=== PATIENT | female | born 1995 | race Caucasian/White ===

== ENCOUNTER 2017-07-22 20:44 | Emergency (ER) | payer SELFPAY ==
[~2017-07-22] VITALS: Ht 152.4 cm; Wt 63.5 kg
[~2017-07-22 20:44] MED LIST: ACET-2043 PO; DOCU-416 PO; FERR-41 PO; IBUP600T22 PO; IBUP800T37 PO; OXYC-865 PO; PREN-75 PO
[2017-07-22 20:49] VITALS: BP 120/78
--- NOTE | 2017-07-22 20:52 | ER Report ---
History and Physical Time Seen By MD: 20:52 HPI/ROS CHIEF COMPLAINT: Lump on right cheek; pain to scar HISTORY OF PRESENT ILLNESS: Patient is a 22-year-old female who presents to the emergency department with 2 separate problems. 1st issues that she has had a lesion to her right cheek since she's been approximately 8 years old. Occasionally will drain foul-smelling green discharge he will somewhat resolve and then recur. She is also complaining of pain to her CT scan correction scar. Patient had a section in February 2017. She's also noted increased vaginal bleeding. She denies dysparenia or other vaginal discahrgeShe [facility] REVIEW OF SYSTEMS: Face: Lump to right cheek Respiratory: No cough, no dyspnea. Cardiovascular: No chest pain, no palpitations. Gastrointestinal: No vomiting, pain to scar Musculoskeletal: No back pain. Allergies: Coded Allergies: No Known Drug Allergies (Unverified , 07/22/17) Home Meds Active Scripts Tramadol Hcl (TRAMADOL HCL) 50 Mg Tablet, 50 MG PO Q6H Y for PAIN, #12 TAB 0 Refills Prov:MICHAEL RAHMAN MD 07/22/17 Cephalexin Monohydrate (CEPHALEXIN) 500 Mg Cap, 500 MG PO Q6H, #20 CAP 0 Refills Prov:MICHAEL RAHMAN MD 07/22/17 Discontinued Reported Medications Vit#96/Ferrous Fum/Fa ( TABLET) 1 Each Tablet, 1 TAB PO DAILY, #90 TAB 1 Refill 12/03/16 Discontinued Scripts Tramadol Hcl (TRAMADOL HCL) 50 Mg Tablet, 50 MG PO Q6H Y for PAIN, #12 TAB 0 Refills Prov:MICHAEL RAHMAN MD 07/22/17 Cephalexin Monohydrate (CEPHALEXIN) 500 Mg Cap, 500 MG PO Q6H, #20 CAP 0 Refills Prov:MICHAEL RAHMAN MD 07/22/17 Docusate Sodium (COLACE) 100 Mg Capsule, 100 MG PO BID, #60 CAPSULE 1 Refill Prov:HERMELINDA GLEZ MD 02/27/17 Oxycodone Hcl/Acetaminophen (PERCOCET 5-325 MG TABLET) 1 Each Tablet, 1-2 TAB PO Q4H Y for PAIN, #40 TAB 0 Refills Prov:HERMELINDA GLEZ MD 02/27/17 Ibuprofen (IBUPROFEN) 800 Mg Tablet, 1 TAB PO Q8H Y for PAIN, #30 TAB 0 Refills TAKE WITH FOOD EVERY 8 HOURS Prov:HERMELINDA GLEZ MD 02/27/17 Ferrous Sulfate (FERROUS SULFATE) 325 Mg Tablet., 1 TAB PO BID, #60 TAB 1 Refill Prov:HERMELINDA GLEZ MD 02/27/17 Past Medical/Surgical History History of in February 2017 Hx Smoking: Yes Smoking Status: Former Smoker Exposure to Second Hand Smoke?: Yes Constitutional Vital Sign - Last 24 Hours 07/22/17 20:49 Temp 97.7 Pulse 81 Resp 14 B/P (MAP) 120/78 Pulse Ox 95 O2 Delivery Room Air Physical Exam General Appearance: The patient is alert, has no immediate need for airway protection and no current signs of toxicity. Respiratory: Chest is non tender, lungs are clear to auscultation. Cardiac: regular rate and rhythm Gastrointestinal: Abdomen soft, mild tenderness alonfg right side of scar; no masses Musculoskeletal: Neck: Neck is supple and non tender. Extremities have full range of motion and are non tender. Skin: No rashes or lesions. Patient has cystlike lesion to the right side of her cheek that we'll drain green fluid when expressed Medical Decision Making Data Points Laboratory Hematology Test 07/22/17 21:00 07/22/17 21:14 Urine HCG, Qualitative Negative (NEGATIVE) Urine Color Yellow Urine Clarity Slightly-cloudy Urine pH 6.0 pH (4.8-9.5) Urine Specific [place] 1.021 Urine Protein Negative mg/dL (NEGATIVE) Urine Glucose (UA) Negative mg/dL (NEGATIVE) Urine Ketones Negative mg/dL (NEGATIVE) Urine Blood Large (NEGATIVE) Urine Nitrite Negative (NEGATIVE) Urine Bilirubin Negative (NEGATIVE) Urine Urobilinogen Negative mg/dL (0.2-1.9) Urine Leukocyte Esterase Small (NEGATIVE) Urine RBC 13 /HPF (0-2/HPF) Urine WBC 15 /HPF (0-5/HPF) Urine Squamous Epithelial Cells Many /LPF (</=FEW) Urine Bacteria Negative /HPF (NONE-FEW) Urine Hyaline Casts Few /LPF (NONE-FEW) Urine Mucus Few /HPF (NONE-FEW) Chemistry Test 07/22/17 21:00 07/22/17 21:14 Urine HCG, Qualitative Negative (NEGATIVE) Urine Color Yellow Urine Clarity Slightly-cloudy Urine pH 6.0 pH (4.8-9.5) Urine Specific [place] 1.021 Urine Protein Negative mg/dL (NEGATIVE) Urine Glucose (UA) Negative mg/dL (NEGATIVE) Urine Ketones Negative mg/dL (NEGATIVE) Urine Blood Large (NEGATIVE) Urine Nitrite Negative (NEGATIVE) Urine Bilirubin Negative (NEGATIVE) Urine Urobilinogen Negative mg/dL (0.2-1.9) Urine Leukocyte Esterase Small (NEGATIVE) Urine RBC 13 /HPF (0-2/HPF) Urine WBC 15 /HPF (0-5/HPF) Urine Squamous Epithelial Cells Many /LPF (</=FEW) Urine Bacteria Negative /HPF (NONE-FEW) Urine Hyaline Casts Few /LPF (NONE-FEW) Urine Mucus Few /HPF (NONE-FEW) Urinalysis Test 07/22/17 21:00 07/22/17 21:14 Urine HCG, Qualitative Negative (NEGATIVE) Urine Color Yellow Urine Clarity Slightly-cloudy Urine pH 6.0 pH (4.8-9.5) Urine Specific [place] 1.021 Urine Protein Negative mg/dL (NEGATIVE) Urine Glucose (UA) Negative mg/dL (NEGATIVE) Urine Ketones Negative mg/dL (NEGATIVE) Urine Blood Large (NEGATIVE) Urine Nitrite Negative (NEGATIVE) Urine Bilirubin Negative (NEGATIVE) Urine Urobilinogen Negative mg/dL (0.2-1.9) Urine Leukocyte Esterase Small (NEGATIVE) Urine RBC 13 /HPF (0-2/HPF) Urine WBC 15 /HPF (0-5/HPF) Urine Squamous Epithelial Cells Many /LPF (</=FEW) Urine Bacteria Negative /HPF (NONE-FEW) Urine Hyaline Casts Few /LPF (NONE-FEW) Urine Mucus Few /HPF (NONE-FEW) ED Course/Re-evaluation ED Course 07/22/2017 9:11:33 pm Patient with suspected epidermal inclusion cyst to the right face. Plan will be referral to general surgery for follow-up and possible excision of cyst. In terms of the patient's abdominal discomfort to her scar no identifiable cause was found. I we will obtain a urinalysis for culture sensitivity GC chlamydia and test. If these are negative will refer back to her [facility] for further evaluation. Decision to Disposition Date: Jul 22, 2017 Decision to Disposition Time: 21:58 Depart Departure Latest Vital Signs Vital Signs Date Time Temp Pulse Resp B/P (MAP) Pulse Ox O2 Delivery O2 Flow Rate FiO2 07/22/17 20:49 97.7 81 14 120/78 95 Room Air Impression: Primary Impression: Epidermal cyst of face Additional Impression: Suprapubic abdominal pain Condition: Improved Disposition: HOME OR SELF-CARE Referrals: HERMELINDA GLEZ MD (PCP) 1 Week FADUMO PARRA MD For evaluation and possible removal of epidermal inclusion cyst New Scripts Tramadol Hcl (TRAMADOL HCL) 50 Mg Tablet 50 MG PO Q6H Y for PAIN, #12 TAB 0 Refills Prov: MICHAEL RAHMAN MD 07/22/17 Cephalexin Monohydrate (CEPHALEXIN) 500 Mg Cap 500 MG PO Q6H, #20 CAP 0 Refills Prov: MICHAEL RAHMAN MD 07/22/17 Patient Instructions: Abdominal Pain (ED), Epidermal Inclusion Cysts (ED) Problem Qualifiers MICHAEL RAHMAN MD Jul 22, 2017 20:52
[2017-07-22] MEDS ORDERED: traMADol 50 MG TAB PO ONE (21:10)
[2017-07-22] MEDS ORDERED: CEPHALEXIN 500 MG CAP TH 2 CAP/BOTTLE PO ONE (21:10)
[2017-07-22] MEDS ORDERED: CEPH500C24 PO ×2 (22:00→22:27)
[2017-07-22] MEDS ORDERED: TRAM-420 PO ×2 (22:00→22:27)
== END 2017-07-22 22:25 | disposition home or self-care (01) ==
LOC: ER 20:58
DX: L72.0 Epidermal cyst (principal); R10.30 Lower abdominal pain, unspecified; Z87.891 Personal history of nicotine dependence
CPT/HCPCS: 81001; 81025; 87088; 87491; 87591; 99283

== ENCOUNTER 2018-07-30 12:39 | Emergency (ER) | payer BC ==
[~2018-07-30 12:39] MED LIST changes: +CEPH500C24 PO; -PREN-75 PO; +PREN1TAB29 PO; +TRAM-420 PO
--- NOTE | 2018-07-30 12:49 | ER Report ---
History and Physical Time Seen By MD: 12:49 Hx. of Stated Complaint: PT REPORTS NAUSEA AND ABD CRAMPING STARTED THIS MORNING, DENIES VOMITING/DIARRHEA, PT REPORTS "SMELLY GAS" HPI/ROS CHIEF COMPLAINT: Nausea, foul-smelling odor from the vagina, bad body odor. HISTORY OF PRESENT ILLNESS: 23-year-old female patient presents to emergency room with complaint of nausea, foul-smelling odor from the vagina and bad body odor. Patient states that body odors been going on for years. She states that she has tried all sorts of different under did rinse with no improvement. She states that she has noted for the past year that she has a foul-smelling odor from her vagina. Patient states that she does have some discomfort with intercourse. She states that she's noticed a foul-smelling odor. She states she's also noticed a discharge. She denies having any nausea, vomiting or diarrhea. She denies having any fevers. Patient states that she was nauseated when she initially woke up this morning, however she states she feels better at this point in time. Patient has not taken any medication for this. REVIEW OF SYSTEMS: Respiratory: No cough, no dyspnea. Cardiovascular: No chest pain, no palpitations. Gastrointestinal: As noted above Musculoskeletal: No back pain. Allergies: Coded Allergies: No Known Drug Allergies (Unverified , 07/30/18) Home Meds Active Scripts Metronidazole (FLAGYL) 500 Mg Tablet, 500 MG PO TID, #42 TAB Prov:GRISEL MASON [facility] 07/30/18 Doxycycline Hyclate (DOXYCYCLINE HYCLATE) 100 Mg Tablet, 100 MG PO BID, #28 TAB Prov:GRISEL MASON [facility] 07/30/18 Discontinued Scripts Tramadol Hcl (TRAMADOL HCL) 50 Mg Tablet, 50 MG PO Q6H PRN for PAIN, #12 TAB 0 Refills Prov:MICHAEL RAHMAN MD 07/22/17 Cephalexin Monohydrate (CEPHALEXIN) 500 Mg Cap, 500 MG PO Q6H, #20 CAP 0 Refills Prov:MICHAEL RAHMAN MD 07/22/17 Past Medical/Surgical History Patient has a past medical history of migraines, dermal cyst, anxiety. Patient has surgical history of section. Reviewed Nurses Notes: Yes Hx Smoking: Yes Smoking Status: Former Smoker Exposure to Second Hand Smoke?: Yes Hx Substance Use Disorder: No Hx Alcohol Use: No Constitutional Vital Sign - Last 24 Hours 07/30/18 07/30/18 07/30/18 07/30/18 12:45 12:46 13:00 13:01 Temp 97.6 Pulse 80 88 Resp 16 B/P (MAP) 118/76 118/76 (90) 90/70 (77) Pulse Ox 93 94 O2 Delivery Room Air 07/30/18 07/30/18 07/30/18 07/30/18 13:30 13:45 14:00 14:30 Pulse 80 77 80 70 B/P (MAP) 104/76 (85) 106/78 (87) 93/62 (72) Pulse Ox 95 95 94 94 07/30/18 07/30/18 07/30/18 07/30/18 14:45 15:00 15:15 15:30 Pulse 68 62 54 73 B/P (MAP) 91/65 (74) 96/68 (77) Pulse Ox 93 94 91 94 Physical Exam General Appearance: The patient is alert, has no immediate need for airway protection and no current signs of toxicity. Respiratory: Chest is non tender, lungs are clear to auscultation. Cardiac: regular rate and rhythm Gastrointestinal: Abdomen is soft and non tender, no masses, bowel sounds normal. Musculoskeletal: Neck: Neck is supple and non tender. Extremities have full range of motion and are non tender. Skin: No rashes or lesions. DIFFERENTIAL DIAGNOSIS: After history and physical exam differential diagnosis was considered for sexually transmitted infection, pelvic inflammatory disease, bacterial vaginosis, tubo-ovarian abscess. Medical Decision Making Data Points Result Diagram: 07/30/18 1254 07/30/18 1254 Laboratory Hematology Test 07/30/18 12:54 07/30/18 13:30 Red Blood Count 5.21 M/uL (4.17-5.56) Mean Corpuscular Volume 88.6 fL (80.0-96.0) Mean Corpuscular Hemoglobin 30.3 pg (26.0-33.0) Mean Corpuscular Hemoglobin Concent 34.2 g/dL (32.0-36.0) Red Cell Distribution Width 12.6 % (11.5-14.5) Mean Platelet Volume 7.6 fL (7.2-11.1) Neutrophils (%) (Auto) 64.4 % (39.4-72.5) Lymphocytes (%) (Auto) 26.8 % (17.6-49.6) Monocytes (%) (Auto) 5.4 % (4.1-12.4) Eosinophils (%) (Auto) 2.8 % (0.4-6.7) Basophils (%) (Auto) 0.6 % (0.3-1.4) Nucleated RBC Relative Count (auto) 0.0 /100WBC Neutrophils # (Auto) 3.7 K/uL (2.0-7.4) Lymphocytes # (Auto) 1.5 K/uL (1.3-3.6) Monocytes # (Auto) 0.3 K/uL (0.3-1.0) Eosinophils # (Auto) 0.2 K/uL (0.0-0.5) Basophils # (Auto) 0.0 K/uL (0.0-0.1) Nucleated RBC Absolute Count (auto) 0.00 K/uL Urine Color Yellow Urine Clarity Clear Urine pH 7.0 pH (4.8-9.5) Urine Specific [place] 1.013 Urine Protein Negative mg/dL (NEGATIVE) Urine Glucose (UA) Negative mg/dL (NEGATIVE) Urine Ketones Negative mg/dL (NEGATIVE) Urine Blood Small (NEGATIVE) Urine Nitrite Negative (NEGATIVE) Urine Bilirubin Negative (NEGATIVE) Urine Urobilinogen Negative mg/dL (0.2-1.9) Urine Leukocyte Esterase Small (NEGATIVE) Urine RBC 1 /HPF (0-2/HPF) Urine WBC 1 /HPF (0-5/HPF) Urine Squamous Epithelial Cells Many /LPF (</=FEW) Urine Transitional Epithelial Cells Few /LPF (NONE-FEW) Urine Bacteria Few /HPF (NONE-FEW) Urine Mucus Few /HPF (NONE-FEW) Sodium Level 140 mmol/L (137-145) Potassium Level 3.7 mmol/L (3.5-5.0) Chloride Level 105 mmol/L (98-107) Carbon Dioxide Level 26 mmol/L (22-31) Blood Urea Nitrogen 10 mg/dl (7-18) Creatinine 0.70 mg/dl (0.52-1.04) Glomerular Filtration Rate Calc > 60.0 Random Glucose 88 mg/dl (75-110) Calcium Level 9.4 mg/dl (8.4-10.2) Total Bilirubin 0.4 mg/dl (0.2-1.3) Aspartate Amino Transf (AST/SGOT) 23 U/L (0-35) Alanine Aminotransferase (ALT/SGPT) 22 U/L (0-56) Alkaline Phosphatase 64 U/L (0-126) Total Protein 7.6 g/dl (6.3-8.2) Albumin 4.3 g/dl (3.5-5.0) Amylase Level 80 U/L (0-110) Lipase 58 U/L (23-300) Human Chorionic Gonadotropin, Qual Negative (NEGATIVE) Chemistry Test 07/30/18 12:54 07/30/18 13:30 White Blood Count 5.8 k/uL (4.5-11.0) Red Blood Count 5.21 M/uL (4.17-5.56) Hemoglobin 15.8 g/dL (12.0-16.0) Hematocrit 46.2 % (34.0-47.0) Mean Corpuscular Volume 88.6 fL (80.0-96.0) Mean Corpuscular Hemoglobin 30.3 pg (26.0-33.0) Mean Corpuscular Hemoglobin Concent 34.2 g/dL (32.0-36.0) Red Cell Distribution Width 12.6 % (11.5-14.5) Platelet Count 226 K/uL (150-450) Mean Platelet Volume 7.6 fL (7.2-11.1) Neutrophils (%) (Auto) 64.4 % (39.4-72.5) Lymphocytes (%) (Auto) 26.8 % (17.6-49.6) Monocytes (%) (Auto) 5.4 % (4.1-12.4) Eosinophils (%) (Auto) 2.8 % (0.4-6.7) Basophils (%) (Auto) 0.6 % (0.3-1.4) Nucleated RBC Relative Count (auto) 0.0 /100WBC Neutrophils # (Auto) 3.7 K/uL (2.0-7.4) Lymphocytes # (Auto) 1.5 K/uL (1.3-3.6) Monocytes # (Auto) 0.3 K/uL (0.3-1.0) Eosinophils # (Auto) 0.2 K/uL (0.0-0.5) Basophils # (Auto) 0.0 K/uL (0.0-0.1) Nucleated RBC Absolute Count (auto) 0.00 K/uL Urine Color Yellow Urine Clarity Clear Urine pH 7.0 pH (4.8-9.5) Urine Specific [place] 1.013 Urine Protein Negative mg/dL (NEGATIVE) Urine Glucose (UA) Negative mg/dL (NEGATIVE) Urine Ketones Negative mg/dL (NEGATIVE) Urine Blood Small (NEGATIVE) Urine Nitrite Negative (NEGATIVE) Urine Bilirubin Negative (NEGATIVE) Urine Urobilinogen Negative mg/dL (0.2-1.9) Urine Leukocyte Esterase Small (NEGATIVE) Urine RBC 1 /HPF (0-2/HPF) Urine WBC 1 /HPF (0-5/HPF) Urine Squamous Epithelial Cells Many /LPF (</=FEW) Urine Transitional Epithelial Cells Few /LPF (NONE-FEW) Urine Bacteria Few /HPF (NONE-FEW) Urine Mucus Few /HPF (NONE-FEW) Glomerular Filtration Rate Calc > 60.0 Calcium Level 9.4 mg/dl (8.4-10.2) Total Bilirubin 0.4 mg/dl (0.2-1.3) Aspartate Amino Transf (AST/SGOT) 23 U/L (0-35) Alanine Aminotransferase (ALT/SGPT) 22 U/L (0-56) Alkaline Phosphatase 64 U/L (0-126) Total Protein 7.6 g/dl (6.3-8.2) Albumin 4.3 g/dl (3.5-5.0) Amylase Level 80 U/L (0-110) Lipase 58 U/L (23-300) Human Chorionic Gonadotropin, Qual Negative (NEGATIVE) Urinalysis Test 07/30/18 12:54 Urine Color Yellow Urine Clarity Clear Urine pH 7.0 pH (4.8-9.5) Urine Specific [place] 1.013 Urine Protein Negative mg/dL (NEGATIVE) Urine Glucose (UA) Negative mg/dL (NEGATIVE) Urine Ketones Negative mg/dL (NEGATIVE) Urine Blood Small (NEGATIVE) Urine Nitrite Negative (NEGATIVE) Urine Bilirubin Negative (NEGATIVE) Urine Urobilinogen Negative mg/dL (0.2-1.9) Urine Leukocyte Esterase Small (NEGATIVE) Urine RBC 1 /HPF (0-2/HPF) Urine WBC 1 /HPF (0-5/HPF) Urine Squamous Epithelial Cells Many /LPF (</=FEW) Urine Transitional Epithelial Cells Few /LPF (NONE-FEW) Urine Bacteria Few /HPF (NONE-FEW) Urine Mucus Few /HPF (NONE-FEW) Microbiology Microbiology Date/Time Source Procedure Growth Status 07/30/18 13:30 Cervix Gram Stain - Final Resulted 07/30/18 13:30 Cervix Genital Culture Pending Resulted 07/30/18 13:30 Cervical Wet Prep - Final Complete EKG/Imaging Imaging Transvaginal pelvic ultrasound INDICATION: Pelvic pain during intercourse. COMPARISON: None Available FINDINGS: Uterus measures 7.2 x 4.8 x 4.2 cm. The uterus is retroverted and homogeneous. No focal abnormality. Nabothian cyst seen in the cervix. Double wall endometrial stripe measures 7.8 mm and homogeneous. There is a 2 mm cyst seen in the endometrium without other focal abnormality. There is no free fluid in the cul-de-sac. Urinary bladder is empty. Pelvic vessels appear unremarkable on this examination. Right ovary measures 4.1 x 3.0 x 2.0 cm and shows normal blood flow and contains multiple peripheral small follicles. Left ovary measures 3.0 x 3.8 x 2.5 cm and shows normal blood flow and contains multiple peripheral small follicles. No adnexal masses. IMPRESSION: 1. Uterus is retroverted and shows no focal normality. Endometrium is normal size with a 2 mm cyst present without other focal abnormality. 2. Both ovaries show multiple peripheral follicles/cysts. This nonspecific and could be an indication of polycystic ovarian syndrome. Correlate clinically. Report Dictated By: Miguelangel Stark at 07/30/2018 2:55 PM Report E-Signed By: Miguelangel Stark at 07/30/2018 2:58 PM ED Course/Re-evaluation ED Course Patient was admitted to an exam room, history and physical were obtained. Differential diagnoses were considered. On examination lungs are clear, heart is regular, abdomen is soft and nontender. With patient having complaints of vaginal discharge a pelvic exam was done as described below. Patient did have a tannish discharge. A CBC, CMP, urinalysis were obtained. Lab results were unremarkable. After reviewing her charts and saying that she did have a section approximately a year ago the decision was made to get an ultrasound of the pelvis make sure there is no clubbing and no abnormality. It was noted that she did have a 2 mm cyst in her uterus. Patient had a negative test. I discussed the findings with the patient. I believe that the patient does have an infection in the pelvis. We are going to treat her with azithromycin 1 g, Rocephin 250 mg, doxycycline 100 mg twice a day 14 days and Flagyl 500 mg 3 times a day 14 days. I have concerns about possible STI. We will go ahead and treat her partner as well with 2 g of azithromycin. A wet prep was done which showed moderate white blood cells, but no clue cells, no trichomoniasis. A vaginal culture was obtained and we will call her with results if any change antibiotics. A chlamydia and gonorrhea screen were also done and sent in. We will call her with results if they're positive in one week. Patient is follow-up with Dr. Wheeler. She verbalized understanding and agreement with plan. Pelvic exam: The vulva was normal no lesions. The vagina did not have significant discharge. The cervix was closed no bleeding, with thomas drainage. The uterus was normal size and tender. The adnexa had no masses and tenderness. The exam was performed with a flower cutter. Decision to Disposition Date: Jul 30, 2018 Decision to Disposition Time: 15:15 Depart Departure Latest Vital Signs Vital Signs Date Time Temp Pulse Resp B/P (MAP) Pulse Ox O2 Delivery O2 Flow Rate FiO2 07/30/18 15:30 73 96/68 (77) 94 07/30/18 12:45 97.6 16 Room Air Impression: Primary Impression: PID (pelvic inflammatory disease) Condition: Improved Disposition: HOME OR SELF-CARE New Scripts Metronidazole (FLAGYL) 500 Mg Tablet 500 MG PO TID, #42 TAB Prov: GRISEL MASON 07/30/18 Doxycycline Hyclate (DOXYCYCLINE HYCLATE) 100 Mg Tablet 100 MG PO BID, #28 TAB Prov: GRISEL MASON 07/30/18 Patient Instructions: Pelvic Inflammatory Disease (ED) Additional Instructions: Increase fluid intake. Take medications as prescribed. Follow up with Dr. Wheeler in the next week. Return to the ER if condition worsens. Limit activity by pain. No intercourse for the next 1 week. GRISEL MASON Jul 30, 2018 12:49
[2018-07-30] MEDS ORDERED: NS(*) 0.9% 1000 ML BAG 1,000 ML IV ONE (13:00)
[2018-07-30 13:19] LABS: PLATELET COUNT, AUTOMATED 226 K/uL (150-450)
--- NOTE | 2018-07-30 15:08 | RADIOLOGY IMAGING REPORT ---
FACILITY: [facility] PATIENT NAME: Delia Reese : 1995 MR: [id number] V: [id number] EXAM DATE: ORDERING PHYSICIAN: GRISEL MASON TECHNOLOGIST: Location: [facility] Patient: Delia Reese : 1995 Visit/Account:[id number] Date of Sevice: 07/30/2018 Transvaginal pelvic ultrasound INDICATION: Pelvic pain during intercourse. COMPARISON: None Available FINDINGS: Uterus measures 7.2 x 4.8 x 4.2 cm. The uterus is retroverted and homogeneous. No focal abnormality. Nabothian cyst seen in the cervix. Double wall endometrial stripe measures 7.8 mm and homogeneous. There is a 2 mm cyst seen in the endo metrium without other focal abnormality. There is no free fluid in the cul-de-sac. Urinary bladder is empty. Pelvic vessels appear unremarkable on this examination. Right ovary measures 4.1 x 3.0 x 2.0 cm and shows normal blood flow and contains multiple peripheral small follicles. Left ovary measures 3.0 x 3.8 x 2.5 cm and shows normal blood flow and contains multiple peripheral s mall follicles. No adnexal masses. IMPRESSION: 1. Uterus is retroverted and shows no focal normality. Endometrium is normal size with a 2 mm cyst pr esent without other focal abnormality. 2. Both ovaries show multiple peripheral follicles/cysts. This nonspecific and could be an indication of polycystic ovarian syndrome. Correlate clinically. Report Dictated By: Miguelangel Stark at 07/30/2018 2:55 PM Report E-Signed By: Miguelangel Stark at 07/30/2018 2:58 PM WSN:[id number]
[2018-07-30] MEDS ORDERED: DOXY-179 PO (15:14)
[2018-07-30] MEDS ORDERED: METR-1 PO (15:14)
[2018-07-30] MEDS ORDERED: cefTRIAXone 250 MG VIAL IM ONE (15:15)
[2018-07-30] MEDS ORDERED: AZITHROMYCIN 250 MG TAB PO ONE (15:15)
[2018-07-30 15:30] VITALS: BP 96/68
== END 2018-07-30 15:51 | disposition home or self-care (01) ==
LOC: ER 12:45
DX: N73.9 Female pelvic inflammatory disease, unspecified (principal); N85.8 Other specified noninflammatory disorders of uterus
CPT/HCPCS: 76830; 81001; 82150; 83690; 84703; 85025; 87070; 87205; 87210; 87491; 87591; 96360; 96361; 96372; 99284; J0696; J7030; Q0144; 82040; 82247; 82310; 82374; 82435; 82565; 82947; 84075; 84132; 84155; 84295; 84450; 84460; 84520